=== PATIENT | female | born 1965 | race Caucasian/White ===

== ENCOUNTER 2016-05-07 14:56 | Emergency (ER) | payer OTHER ==
[~2016-05-07 14:56] MED LIST: ADDERALL5 MG PO; AMOXICILLIN500 M2 PO; AMOXICILLIN500 MG PO; AMOXIL500 MG PO; AUGMENTIN 875875 MG PO; BENADRYL25 MG PO; CIPRODEX 0.3%-7.5 ML OT; CLARITIN10 MG PO; DIFLUCAN150 MG PO; EES400 MG PO; EPI-PEN1 MG/ML MR; EPIPEN 2-PAK1 MG/ML MR; FLONASE 0.05% 121 EA NAS; FLONASE ALLERG9.9 ML NAS; KEFLEX500 MG PO; MACROBID100 M1 PO; MEDROL DOSEPAK4 MG PO; MOTRIN800 MG PO; OXYCODONE5 MG PO; PHENERGAN W/ DE30 ML PO; PHENERGAN W/DM120 ML PO; PHENERGAN12.5 M1 PO; PREDNICOT10 MG PO; PREDNISONE10 MG PO; PROAIR HFA0.09 MG/AC INH; ROBITUSSIN AC 110 ML PO; SYNTHROID,LEV100 MCG PO; SYNTHROID0.125 MG PO; TAMIFLU 75MG CA75 MG PO; TESSALON PERLE100 M1 PO; TESSALON PERLE200 MG PO; TOBRADEX 0.1%-0.5 ML OPH; TRIMOX500 MG PO; ULTRAM50 MG PO; VICODIN 500 MG-1 TAB PO; ZITHROMAX Z PA250 MG PO; ZITHROMAX250 MG PO; ZYRTEC10 MG PO
[2016-05-07] MEDS ORDERED: ZYRTEC10 MG PO (15:43)
== END 2016-05-07 15:48 | disposition home or self-care (01) ==
LOC: ED 14:56
DX: J06.9 Acute upper respiratory infection, unspecified (principal); R05 Cough

== ENCOUNTER 2017-04-25 19:33 | Emergency (ER) | payer OTHER ==
[~2017-04-25] VITALS: Ht 170.1 cm; Wt 64.4 kg
== END 2017-04-25 21:21 | disposition home or self-care (01) ==
LOC: ED 19:33
DX: J02.8 Acute pharyngitis due to other specified organisms (principal); Z90.710 Acquired absence of both cervix and uterus; Z79.899 Other long term (current) drug therapy

== ENCOUNTER → 2017-06-13 | Outpatient (CLI) | payer OTHER | END | disposition home or self-care (01) | LOC: MAMMO 15:59 | DX: Z12.31 Encounter for screening mammogram for malignant neoplasm of breast (principal) ==

== ENCOUNTER 2017-07-13 19:43 | Emergency (ER) | payer OTHER ==
[~2017-07-13] VITALS: Ht 170.1 cm; Wt 60.3 kg
== END 2017-07-13 21:52 | disposition home or self-care (01) ==
LOC: ED 19:43
DX: M25.572 Pain in left ankle and joints of left foot (principal); M25.541 Pain in joints of right hand

== ENCOUNTER 2017-08-04 11:58 | Emergency (ER) | payer OTHER ==
[~2017-08-04] VITALS: Ht 170.1 cm; Wt 60.3 kg
== END 2017-08-04 12:27 | disposition home or self-care (01) ==
LOC: ED 11:58
DX: S41.111D Laceration without foreign body of right upper arm, subsequent encounter (principal); S81.812D Laceration without foreign body, left lower leg, subsequent encounter; Z48.02 Encounter for removal of sutures; X58.XXXD Exposure to other specified factors, subsequent encounter

== ENCOUNTER 2017-11-14 09:01 | Emergency (ER) | payer OTHER ==
[~2017-11-14] VITALS: Ht 170.1 cm; Wt 63.0 kg
[2017-11-15] MEDS ORDERED: Motrin,Rufen800 MG PO (09:32)
[2017-11-15] MEDS ORDERED: PHENERGAN25 M3 PO (09:32)
== END 2017-11-14 12:41 | disposition home or self-care (01) ==
LOC: ED 09:01
DX: R51 Headache (principal); R11.10 Vomiting, unspecified; H53.71 Glare sensitivity; Z90.710 Acquired absence of both cervix and uterus

== ENCOUNTER 2017-11-15 06:42 | Emergency (ER) | payer OTHER ==
[~2017-11-15] VITALS: Ht 170.1 cm; Wt 61.2 kg
[2017-11-15 07:29] LABS: BASO % 0.1 % (0.0-1.0); EOS % 0.1 % (1.0-4.0); HEMATOCRIT 37.4 % (37.0-47.0); HEMOGLOBIN 12.2 g/dl (12.0-16.0); LYMPH # 0.7 10*3/uL (1.3-4.4); LYMPH % 9.9 % (27.0-41.0); MEAN CELL VOLUME 90.6 fl (81.0-99.0); MEAN CORPUSCULAR HGB 29.5 pg (27.0-31.0); MEAN CORPUSCULAR HGB CONC 32.6 g/dl (33.0-37.0); MEAN PLATELET VOLUME 8.2 fl (9.6-12.3); MONO # 0.5 10*3/uL (0.1-1.0); MONO % 6.7 % (3.0-9.0); NEUT % 82.9 % (47.0-73.0); PLATELET COUNT AUTOMATED 224 10*3/uL (130-400); RED BLOOD COUNT 4.13 10*6/uL (4.10-5.10); RED CELL DISTRI WIDTH 12.4 % (0-14.5); WHITE BLOOD COUNT 7.3 10*3/uL (4.8-10.8)
[2017-11-15 07:49] LABS: ALKALINE PHOSPHATASE 75 U/L (45-117); BUN 8 mg/dl (7-24); CHLORIDE 105 mmol/L (98-107); CREATININE 0.62 mg/dL (0.55-1.02); POTASSIUM 3.7 mmol/L (3.5-5.1); SGOT/AST 13 IU/L (3-35); SGPT/ALT 20 U/L (12-78); SODIUM 139 mmol/L (136-145); TOTAL PROTEIN 7.2 gm/dL (6.4-8.2)
[2017-11-15] MEDS ORDERED: PHENERGAN25 M3 PO (09:32)
[2017-11-15] MEDS ORDERED: Motrin,Rufen800 MG PO (09:32)
== END 2017-11-15 09:34 | disposition home or self-care (01) ==
LOC: ED 06:42
PROVIDERS: Emergency Medicine
DX: R51 Headache (principal); Z90.710 Acquired absence of both cervix and uterus

== ENCOUNTER 2017-11-15 19:37 | Emergency (ER) | payer OTHER ==
[~2017-11-15] VITALS: Ht 170.1 cm; Wt 61.2 kg
[~2017-11-15 19:37] MED LIST changes: +Motrin,Rufen800 MG PO; +PHENERGAN25 M3 PO
== END 2017-11-16 01:57 | disposition short-term general hospital (02) ==
LOC: ED 19:37
DX: R51 Headache (principal); H92.03 Otalgia, bilateral; M54.2 Cervicalgia; Z90.710 Acquired absence of both cervix and uterus

== ENCOUNTER → 2017-11-21 | Outpatient (CLI) | payer OTHER ==
[2017-11-21 08:00] LABS: FREE T4 0.77 ng/dl (0.76-1.46)
[2017-11-21 08:05] LABS: THYROID STIM HORMONE (HS) 13.8 uIU/ml (0.358-4.75)
[2017-11-21 08:26] LABS: VITAMIN D, 25-HYDROXY 38.9 ng/mL (30-100)
== END | disposition home or self-care (01) ==
LOC: LAB 06:51
PROVIDERS: Family Medicine
DX: E03.9 Hypothyroidism, unspecified (principal); E55.9 Vitamin D deficiency, unspecified; R53.83 Other fatigue; R51 Headache; C85.90 Non-Hodgkin lymphoma, unspecified, unspecified site

== ENCOUNTER 2017-12-16 05:56 | Emergency (ER) | payer OTHER ==
[~2017-12-16] VITALS: Ht 167.6 cm; Wt 59.9 kg
[2017-12-16] MEDS ORDERED: Motrin,Rufen800 MG PO (07:23)
== END 2017-12-16 07:32 | disposition home or self-care (01) ==
LOC: ED 05:56
DX: S93.491A Sprain of other ligament of right ankle, initial encounter (principal); S93.691A Other sprain of right foot, initial encounter; F10.10 Alcohol abuse, uncomplicated; W10.8XXA Fall (on) (from) other stairs and steps, initial encounter; Y93.89 Activity, other specified; Y92.89 Other specified places as the place of occurrence of the external cause; Y99.8 Other external cause status

== ENCOUNTER 2018-08-06 22:29 | Emergency (ER) | payer OTHER ==
[~2018-08-06] VITALS: Ht 170.1 cm; Wt 61.7 kg
[2018-08-06 23:36] LABS: BILIRUBIN NEGATIVE (NEGATIVE); BLOOD 1+ (NEGATIVE); CLARITY SL CLOUDY (CLEAR); COLOR YELLOW (YELLOW); GLUCOSE NEGATIVE (NEGATIVE); KETONE NEGATIVE (NEGATIVE); LEUKO ESTERASE 2+ (NEGATIVE); NITRITE NEGATIVE (NEGATIVE); SPECIFIC GRAVITY 1.015 (1.005-1.030); UROBILINOGEN 0.2 E.U./dl (0.2-1.0)
[2018-08-06 23:46] LABS: BASO % 0.2 % (0.0-1.0); EOS # 0.1 10*3/uL (0.0-0.4); EOS % 2.3 % (1.0-4.0); HEMATOCRIT 36.5 % (37.0-47.0); HEMOGLOBIN 11.6 g/dl (12.0-16.0); LYMPH # 1.6 10*3/uL (1.3-4.4); MEAN CELL VOLUME 92.4 fl (81.0-99.0); MEAN CORPUSCULAR HGB 29.4 pg (27.0-31.0); MEAN CORPUSCULAR HGB CONC 31.8 g/dl (33.0-37.0); MEAN PLATELET VOLUME 8.7 fl (9.6-12.3); MONO # 0.5 10*3/uL (0.1-1.0); MONO % 8.2 % (3.0-9.0); NEUT # 3.5 10*3/uL (2.3-7.9); NEUT % 61.1 % (47.0-73.0); PLATELET COUNT AUTOMATED 213 10*3/uL (130-400); RED BLOOD COUNT 3.95 10*6/uL (4.10-5.10); RED CELL DISTRI WIDTH 12.5 % (0-14.5); WHITE BLOOD COUNT 5.7 10*3/uL (4.8-10.8)
[2018-08-06 23:57] LABS: ALBUMIN 3.8 gm/dl (3.1-4.5); ALKALINE PHOSPHATASE 82 U/L (45-117); BUN 18 mg/dl (7-24); CHLORIDE 107 mmol/L (98-107); CREATININE 0.68 mg/dL (0.55-1.02); POTASSIUM 3.8 mmol/L (3.5-5.1); SGOT/AST 16 IU/L (3-35); SGPT/ALT 20 U/L (12-78); SODIUM 140 mmol/L (136-145); TOTAL PROTEIN 6.4 gm/dL (6.4-8.2)
[2018-08-06 23:58] LABS: INTERNATIONAL NORM RATIO 0.9 (2.0-3.5)
[2018-08-07 00:08] LABS: BACTERIA 2+; RBC 16-20 rbc/hpf (0-2); WBC 21-30 wbc/hpf (0-5)
[2018-08-07] MEDS ORDERED: CEPHALEXIN500 M1 PO (00:50)
== END 2018-08-07 01:20 | disposition home or self-care (01) ==
LOC: ED 22:29
PROVIDERS: Nurse Practitioner Family
DX: N39.0 Urinary tract infection, site not specified (principal); N89.8 Other specified noninflammatory disorders of vagina; N93.9 Abnormal uterine and vaginal bleeding, unspecified; R14.0 Abdominal distension (gaseous); Z90.710 Acquired absence of both cervix and uterus; Z85.89 Personal history of malignant neoplasm of other organs and systems

== ENCOUNTER → 2018-11-07 | Outpatient (CLI) | payer OTHER ==
[~2018-11-07] MED LIST changes: +CEPHALEXIN500 M1 PO
[2018-11-07 18:25] LABS: HEMATOCRIT 37.2 % (37.0-47.0); HEMOGLOBIN 12.1 g/dl (12.0-16.0); MEAN CELL VOLUME 92.1 fl (81.0-99.0); MEAN CORPUSCULAR HGB CONC 32.5 g/dl (33.0-37.0); MEAN PLATELET VOLUME 8.9 fl (9.6-12.3); RED BLOOD COUNT 4.04 10*6/uL (4.10-5.10); RED CELL DISTRI WIDTH 12.7 % (0-14.5); WHITE BLOOD COUNT 5.1 10*3/uL (4.8-10.8)
[2018-11-07 19:02] LABS: ALBUMIN 3.9 gm/dl (3.1-4.5); ALKALINE PHOSPHATASE 86 U/L (45-117); BUN 18 mg/dl (7-24); CHLORIDE 107 mmol/L (98-107); CHOLESTEROL 186 mg/dL (<200); CREATININE 0.69 mg/dL (0.55-1.02); HDL CHOLESTEROL 49 mg/dl (40-60); LDL CHOLESTEROL 108 mg/dL (9-159); POTASSIUM 3.4 mmol/L (3.5-5.1); SGOT/AST 14 IU/L (3-35); SGPT/ALT 17 U/L (12-78); SODIUM 141 mmol/L (136-145); TRIGLYCERIDES 145 mg/dl (<150); VLDL CHOLESTEROL 29 mg/dL (6-40)
== END | disposition home or self-care (01) ==
LOC: LAB 17:27
PROVIDERS: Family Medicine
DX: E03.9 Hypothyroidism, unspecified (principal)

== ENCOUNTER 2019-12-30 10:19 | Emergency (ER) | payer OTHER ==
[2019-12-30] MEDS ORDERED: Synthroid,Levo25 MCG PO (10:26)
[2019-12-30] MEDS ORDERED: FLUOXETINE HCL40 MG PO (10:26)
[2019-12-30] MEDS ORDERED: NORCO 5-325 TA1 EACH PO (13:15)
[2019-12-30] MEDS ORDERED: CEPHALEXIN500 M1 PO (13:15)
== END 2019-12-30 13:29 | disposition home or self-care (01) ==
LOC: ED 10:19
DX: S61.112A Laceration without foreign body of left thumb with damage to nail, initial encounter (principal); S61.211A Laceration without foreign body of left index finger without damage to nail, initial encounter; Z79.899 Other long term (current) drug therapy; W45.8XXA Other foreign body or object entering through skin, initial encounter; Y93.89 Activity, other specified; Y92.89 Other specified places as the place of occurrence of the external cause; Y99.8 Other external cause status

== ENCOUNTER 2020-01-09 14:21 | Emergency (ER) | payer OTHER ==
[~2020-01-09] VITALS: Ht 170.1 cm; Wt 73.5 kg
[~2020-01-09 14:21] MED LIST changes: +FLUOXETINE HCL40 MG PO; +NORCO 5-325 TA1 EACH PO; +Synthroid,Levo25 MCG PO
== END 2020-01-09 16:40 | disposition home or self-care (01) ==
LOC: ED 14:21
DX: S61.211A Laceration without foreign body of left index finger without damage to nail, initial encounter (principal); S61.112A Laceration without foreign body of left thumb with damage to nail, initial encounter; Z79.899 Other long term (current) drug therapy; X58.XXXA Exposure to other specified factors, initial encounter; Y93.89 Activity, other specified; Y92.89 Other specified places as the place of occurrence of the external cause; Y99.8 Other external cause status

== ENCOUNTER → 2020-03-02 | Outpatient (CLI) | payer OTHER | END | disposition home or self-care (01) | LOC: COVID19 11:32 | PROVIDERS: ATTEND Family Medicine | DX: Z20.822 Contact with and (suspected) exposure to COVID-19 (principal) ==

== ENCOUNTER → 2020-05-25 | Outpatient (CLI) | payer OTHER | END | disposition home or self-care (01) | LOC: US 05-21 13:30 | PROVIDERS: ATTEND Family Medicine | DX: R14.0 Abdominal distension (gaseous) (principal); Z85.72 Personal history of non-Hodgkin lymphomas; Z90.710 Acquired absence of both cervix and uterus; Z90.49 Acquired absence of other specified parts of digestive tract ==

== ENCOUNTER → 2020-10-10 | Outpatient (CLI) | payer OTHER ==
[2020-10-10 10:42] LABS: FREE T4 0.78 ng/dl (0.76-1.46)
[2020-10-10 10:48] LABS: THYROID STIM HORMONE (HS) 4.61 uIU/ml (0.358-4.75)
== END | disposition home or self-care (01) ==
LOC: LAB 09:46
PROVIDERS: ATTEND Family Medicine
DX: R53.83 Other fatigue (principal); R63.5 Abnormal weight gain

== ENCOUNTER → 2020-10-15 | Outpatient (CLI) | payer OTHER | END | disposition home or self-care (01) | LOC: CT 13:21 | PROVIDERS: ATTEND Internal Medicine Hematology & Oncology | DX: C85.91 Non-Hodgkin lymphoma, unspecified, lymph nodes of head, face, and neck (principal) ==

== ENCOUNTER → 2021-02-03 | Outpatient (CLI) | payer OTHER | END | disposition home or self-care (01) | LOC: COVID19 15:15 | PROVIDERS: ATTEND Internal Medicine | DX: Z11.52 Encounter for screening for COVID-19 (principal) ==

== ENCOUNTER → 2021-07-06 | Outpatient (CLI) | payer OTHER ==
[2021-07-06 16:42] LABS: HEMATOCRIT 40.5 % (37.0-47.0); MEAN CORPUSCULAR HGB 29.3 pg (27.0-31.0); MEAN CORPUSCULAR HGB CONC 33.3 g/dl (33.0-37.0); MEAN PLATELET VOLUME 8.3 fl (9.6-12.3); RED BLOOD COUNT 4.6 10*6/uL (4.10-5.10); RED CELL DISTRI WIDTH 12.7 % (0-14.5)
[2021-07-06 17:00] LABS: ALKALINE PHOSPHATASE 80 U/L (45-117); BUN 16 mg/dl (7-24); CHLORIDE 108 mmol/L (98-107); CHOLESTEROL 193 mg/dL (<200); CREATININE 0.75 mg/dL (0.55-1.02); LDL CHOLESTEROL 129 mg/dL (9-159); POTASSIUM 3.3 mmol/L (3.5-5.1); SGOT/AST 12 IU/L (3-35); SGPT/ALT 20 U/L (12-78); SODIUM 141 mmol/L (136-145); TOTAL PROTEIN 7.3 gm/dL (6.4-8.2); TRIGLYCERIDES 96 mg/dl (<150)
[2021-07-06 17:33] LABS: VITAMIN D, 25-HYDROXY 33.5 ng/mL (30-100)
[2021-07-07 05:06] LABS: HBSAG Negative (Negative); HEP B CORE AB, IGM Negative (Negative); HEPATITIS A AB IGM Negative (Negative); HEPATITIS C ANTIBODY <0.1 (0.0-0.9)
== END | disposition home or self-care (01) ==
LOC: LAB 16:22
PROVIDERS: ATTEND Family Medicine
DX: Z72.51 High risk heterosexual behavior (principal)

== ENCOUNTER 2023-07-17 16:25 | Emergency (ER) | payer OTHER ==
[~2023-07-17] VITALS: Ht 170.1 cm; Wt 68.9 kg
[2023-07-17] MEDS ORDERED: PREDNISONE20 M1 PO (18:25)
[2023-07-17] MEDS ORDERED: methylPREDNISolone sod succ 125 MG VIAL IM ONE (18:25)
== END 2023-07-17 18:42 | disposition home or self-care (01) ==
LOC: ED 16:25
DX: L23.7 Allergic contact dermatitis due to plants, except food (principal); F41.9 Anxiety disorder, unspecified; Z90.710 Acquired absence of both cervix and uterus; Z98.890 Other specified postprocedural states

== ENCOUNTER → 2023-07-18 | Outpatient (CLI) | payer OTHER ==
[~2023-07-18] MED LIST changes: +PREDNISONE20 M1 PO
[2023-07-18 16:43] LABS: BASO % 0.2 % (0.0-1.0); EOS % 0.1 % (1.0-4.0); HEMATOCRIT 39.9 % (37.0-47.0); LYMPH # 1.4 10*3/uL (1.3-4.4); LYMPH % 13.9 % (27.0-41.0); MEAN CELL VOLUME 90.5 fl (81.0-99.0); MEAN CORPUSCULAR HGB 29.9 pg (27.0-31.0); MEAN CORPUSCULAR HGB CONC 33.1 g/dl (33.0-37.0); MEAN PLATELET VOLUME 8.4 fl (9.6-12.3); MONO # 0.9 10*3/uL (0.1-1.0); MONO % 9.1 % (3.0-9.0); NEUT # 7.7 10*3/uL (2.3-7.9); NEUT % 76.3 % (47.0-73.0); PLATELET COUNT AUTOMATED 282 10*3/uL (130-400); RED BLOOD COUNT 4.41 10*6/uL (4.10-5.10); RED CELL DISTRI WIDTH 12.5 % (0-14.5); WHITE BLOOD COUNT 10.1 10*3/uL (4.8-10.8)
[2023-07-18 17:00] LABS: ALKALINE PHOSPHATASE 79 U/L (46-116); SGPT/ALT 15 U/L (5-49); TOTAL PROTEIN 7.3 gm/dL (6.0-8.0)
== END | disposition home or self-care (01) ==
LOC: LAB 16:15
PROVIDERS: ATTEND Podiatrist Foot & Ankle Surgery
DX: B35.1 Tinea unguium (principal)

== ENCOUNTER 2023-08-28 18:00 | Emergency (ER) | payer OTHER ==
[~2023-08-28] VITALS: Ht 170.1 cm; Wt 69.4 kg
[2023-08-28] MEDS ORDERED: Ondansetron Hydrochloride 4 MG TAB SL ONE ×2 (18:50→20:15)
[2023-08-28] MEDS ORDERED: ACETAMINOPHEN 325 MG TAB PO ONE (18:55)
[2023-08-28] MEDS ORDERED: Ondansetron4 MG PO (20:12)
== END 2023-08-28 20:21 | disposition home or self-care (01) ==
LOC: ED 18:00
DX: R51.9 Headache, unspecified (principal); M54.2 Cervicalgia; R11.2 Nausea with vomiting, unspecified; F41.9 Anxiety disorder, unspecified; Z90.710 Acquired absence of both cervix and uterus; Z98.890 Other specified postprocedural states; V43.92XA Unspecified car occupant injured in collision with other type car in traffic accident, initial encounter; Y93.89 Activity, other specified; Y92.410 Unspecified street and highway as the place of occurrence of the external cause; Y99.0 Civilian activity done for income or pay

== ENCOUNTER → 2024-02-08 | Outpatient (CLI) | payer OTHER ==
[~2024-02-08] MED LIST changes: +Ondansetron4 MG PO
== END | disposition home or self-care (01) ==
LOC: RAD 11:05
PROVIDERS: ATTEND Family Medicine
DX: M25.572 Pain in left ankle and joints of left foot (principal); M25.512 Pain in left shoulder; M54.50 Low back pain, unspecified

== ENCOUNTER → 2024-12-24 | Outpatient (CLI) | payer OTHER ==
[2024-12-24 10:35] LABS: MEAN CELL VOLUME 91.5 fl (81.0-99.0); MEAN CORPUSCULAR HGB 29.6 pg (27.0-31.0); MEAN PLATELET VOLUME 8.8 fl (9.6-12.3); NUCLEATED RED BLOOD CELL 0.0 % (0.0-0.0); NUCLEATED RED BLOOD CELL 0.0 10*3/uL (0.0-0.0); PLATELET COUNT AUTOMATED 276.0 10*3/uL (130-400); RED CELL DISTRI WIDTH 12.6 % (0-14.5)
[2024-12-24 11:16] LABS: VITAMIN D, 25-HYDROXY 36.6 ng/mL (30-100)
[2024-12-24 15:05] LABS: BUN 9 mg/dl (9-23); FREE T4 0.89 ng/dl (0.89-1.76); GAMMA GLUTAMYL TRANSFERASE 23 U/L (0-38); LDL CHOLESTEROL 128 mg/dL (9-159); SGPT/ALT 27 U/L (5-49)
[2024-12-26 13:07] LABS: TESTOS, FREE 0.8 pg/mL (0.0-4.2)
== END | disposition home or self-care (01) ==
LOC: LAB 10:16
PROVIDERS: ATTEND Family Medicine
DX: F41.1 Generalized anxiety disorder (principal); R53.83 Other fatigue; Z00.00 Encounter for general adult medical examination without abnormal findings

== ENCOUNTER → 2025-01-14 | Outpatient (CLI) | payer OTHER | END | disposition home or self-care (01) | LOC: US 13:37 | PROVIDERS: ATTEND Family Medicine | DX: R10.20 Pelvic and perineal pain unspecified side (principal); Z90.710 Acquired absence of both cervix and uterus ==

== ENCOUNTER 2025-01-29 00:05 | Emergency (ER) | payer OTHER ==
[~2025-01-29] VITALS: Ht 170.1 cm; Wt 73.5 kg
[2025-01-29] MEDS ORDERED: Ondansetron Hydrochloride 4 MG TAB SL ONE (01:45)
[2025-01-29] MEDS ORDERED: Acetaminophen/Hydrocodone 5 MG/325 MG TABLET PO ONE (01:45)
[2025-01-29] MEDS ORDERED: HYDROCODONE-AC1 EAC1 PO (01:55)
== END 2025-01-29 02:11 | disposition home or self-care (01) ==
LOC: ED 00:05
DX: S52.602A Unspecified fracture of lower end of left ulna, initial encounter for closed fracture (principal); F41.9 Anxiety disorder, unspecified; X58.XXXA Exposure to other specified factors, initial encounter; Y93.89 Activity, other specified; Y92.89 Other specified places as the place of occurrence of the external cause; Y99.8 Other external cause status